=== PATIENT | female | born 1940 | race Caucasian/White ===

== ENCOUNTER 2016-09-19 07:09 | Day surgery (SDC) | payer OTHER ==
--- NOTE | 2016-09-19 08:06 | PDANEPAE ---
ANE History of Present Illness 76 yo F here for lower endoscopy ANE Past Medical History - Cardiovascular History Hx Hypertension: No Hx Arrhythmias: No Hx Chest Pain: No Hx Coronary Artery / Peripheral Vascular Disease: No Hx CHF / Valvular Disease: Yes Hx Palpitations: No Cardiovascular History Comment: diuretic -for swelling in ankles, Chol Rx - Pulmonary History Hx COPD: No Hx Asthma/Reactive Airway Disease: No Hx Recent Upper Respiratory Infection: No Hx Oxygen in Use at Home: No Hx Sleep Apnea: No Sleep Apnea Screening Result - Last Documented: Negative - Neurologic History Hx Cerebrovascular Accident: No Hx Seizures: No Hx Dementia: No - Endocrine History Hx Diabetes: No Endocrine History Comment: hypothroid - Renal History Hx Renal Disorders: No - Liver History Hx Hepatic Disorders: No - Neurological & Psychiatric Hx Hx Neurological and Psychiatric Disorders: Yes Neurological / Psychiatric History Comment: arthritis spine-3 spots - Cancer History Hx Cancer: No - Congenital Disorder History Hx Congenital Disorders: No - GI History Hx Gastrointestinal Disorders: Yes Gastrointestinal History Comment: GERD. Positive Cologuard Test. - Other Health History Other Health History: eczema - Chronic Pain History Chronic Pain: No - Surgical History Prior Surgeries: appy. JIMBO. bilat knee replacements. R rotator cuff x2. fingers fused ANE Review of Systems Review of systems is: negative - Exercise capacity Exercise capacity: >=4 METS METS (RN): 4 METS ANE Patient History - Allergies Allergies/Adverse Reactions: Iodinated Contrast- Oral and IV Dye [Iodinated Contrast Media - Oral and] Allergy (Verified 08/30/16 11:06) Swelling/neck,face,throat Penicillins Allergy (Verified 09/19/16 07:40) Rash narcotics Allergy (Uncoded 08/30/16 11:06) Other-Enter Comments - Home Medications Home medications: home medication list seen and reviewed Home Medications: Aleve 08/30/16 [Last Taken 09/12/16] BIOTIN 08/30/16 [Last Taken 09/12/16] Estradiol 08/30/16 [Last Taken 09/17/16] Levothyroxine 08/30/16 [Last Taken 09/18/16] Nexium 08/30/16 [Last Taken 09/18/16] Ropinirole ER 08/30/16 [Last Taken 09/18/16 11:55] SIMVASTATIN 08/30/16 [Last Taken 09/17/16] Spironolactone 08/30/16 [Last Taken 09/17/16] Vitamin D3 08/30/16 [Last Taken 09/12/16] - NPO status NPO Status: no food or drink >8 hours - Anes Hx Anes Hx: no prior problems - Smoking Hx Smoking Status: Never smoked - Alcohol Use Alcohol Use: Rarely - Family Anes Hx Family Anes Hx: none ANE Labs/Vital Signs - Vital Signs Vital Signs: reviewed preoperatively; see RN documention for details Height: 156.21 cm Weight: 58.967 kg ANE Physical Exam - Airway Neck exam: FROM Mallampati Score: Class 2 Mouth exam: normal dental/mouth exam Mouth image: 1 - missing - Pulmonary Pulmonary: no respiratory distress, clear to auscultation - Cardiovascular Cardiovascular: regular rate and rhythym - ASA Status ASA Status: II ANE Anesthesia Plan Anesthesia Plan: GA with mask Total IV Anesthesia: TIVA
[2016-09-19] MEDS ORDERED: LR 1,000 ML IV ONE (08:30)
--- NOTE | 2016-09-19 08:38 | PDGENHP ---
History & Physical Chief Complaint: + Cologard Relevant Physical Exam: GEN: NAD. Cardiac: RRR. Lungs: CTA B. Abd: Soft, nt, nd
[2016-09-19] MEDS ORDERED: PROPOFOL/EMULSION 500 MG/50 ML BOTTLE IV ONE (08:41)
[2016-09-19] MEDS ORDERED: ONDANSETRON 4 MG/2 ML VIAL IVP PRN (08:56)
[2016-09-19] MEDS ORDERED: NALOXONE HCL 0.4 MG/ML INJ IVP PRN (08:56)
[2016-09-19] MEDS ORDERED: ACETAMINOPHEN 500 MG TAB PO PRN (08:56)
--- NOTE | 2016-09-19 09:19 | POSTOPPROG ---
Post Op Note Date of Operation: 09/19/16 Surgeon: Jd Saucedo Pre-op Diagnosis: + Cologard Post-op Diagnosis: Mild left sided diverticulosis Indication: + Cologard Procedure: Colonoscopy Findings: Mild left sided diverticulosis Inf/Abcess present in the surg proc area at time of surgery?: No
--- NOTE | 2016-09-19 09:51 | GPN ---
[f rep st] PROCEDURE NOTE PREPROCEDURE DIAGNOSIS: Positive Cologuard. POSTOP DIAGNOSIS: Mild left-sided diverticulosis. MEDICATIONS: Monitored anesthesia care. INDICATIONS: The patient is a 76-year-old female with a history of a positive Cologuard. She also has a history of colon polyps. She is here today for a colonoscopy. The risks and benefits of the procedure discussed with the patient. Consent obtained. Risks include, but not limited to, bleedin g, perforation, and sedation. The patient is ASA class 2. DESCRIPTION OF PROCEDURE: The pediatric colonoscope was advanced to the terminal ileum, which appea red normal. The ileocecal valve, appendiceal orifice, cecum, ascending colon, hepatic flexure, webber sverse colon, splenic flexure were normal. There was mild left-sided diverticulosis in the descendi ng colon and sigmoid colon. Retroflexed views in the rectum were normal. IMPRESSION: Mild left-sided diverticulosis. Otherwise, normal colonoscopy. RECOMMENDATION: 1. Advance diet as tolerated. 2. Discharge home with escort. 3. No repeat colonoscopy indicated given her age. Thank you for allowing me to participate in the care of your patient. Please do not hesitate to roxy thanh with questions. /[id number]/MODL
[2016-09-19 11:14] VITALS: TEMP 98.1
[2016-09-19 11:15] VITALS: BP 135/62; PULSE 79; RESP 16; O2SAT 97
--- NOTE | 2016-09-19 20:54 | POSTANESTH ---
Post Anesthetic Evaluation Cardiovascular Status: Normal, Stable, Similar to Pre-Op Cond Respiratory Status: Normal, Stable, Similar to Pre-op Cond. Level of Consciousness/Mental Status: Can Participate in Eval, Alert and Oriented Pain Control: Adequate, Prn Tx Ordered Nausea/Vomiting Control: Adequate, Prn Tx Ordered Complications Possibly Related to Anesthesia: None Noted
== END 2016-09-19 11:00 | disposition home or self-care (01) ==
LOC: FSGY 07:09
PROVIDERS: ATTEND Internal Medicine Gastroenterology
PROC: 0DJD8ZZ Inspection of Lower Intestinal Tract, Via Natural or Artificial Opening Endoscopic (ICD-10-PCS; principal; 2016-09-19 08:30)
DX: Z12.11 Encounter for screening for malignant neoplasm of colon (principal); K57.30 Diverticulosis of large intestine without perforation or abscess without bleeding; K21.9 Gastro-esophageal reflux disease without esophagitis; Z86.010 Personal history of colon polyps; Z88.0 Allergy status to penicillin
CPT/HCPCS: J2704

== ENCOUNTER → 2017-01-22 | Outpatient (CLI) | payer OTHER | LOC: BRMIMAGING 11:09 | PROVIDERS: ATTEND Internal Medicine Geriatric Medicine | DX: Z13.820 Encounter for screening for osteoporosis (principal); M81.0 Age-related osteoporosis without current pathological fracture; Z78.0 Asymptomatic menopausal state ==

== ENCOUNTER → 2017-04-04 | Outpatient (CLI) | payer OTHER | LOC: FIMAGING 08:20 | PROVIDERS: ATTEND Registered Nurse | DX: R10.12 Left upper quadrant pain (principal); R35.0 Frequency of micturition; K80.20 Calculus of gallbladder without cholecystitis without obstruction ==

== ENCOUNTER → 2017-04-25 | Outpatient (CLI) | payer OTHER | LOC: FIMAGING 12:47 | PROVIDERS: ATTEND Surgery | DX: K80.20 Calculus of gallbladder without cholecystitis without obstruction (principal); N81.10 Cystocele, unspecified; N20.0 Calculus of kidney; K59.00 Constipation, unspecified; I70.0 Atherosclerosis of aorta; Z91.041 Radiographic dye allergy status ==